=== PATIENT | male | born 1970 | race Caucasian/White ===

== ENCOUNTER 2022-09-09 13:45 | Outpatient (RCR) | payer MEDICAID, SELFPAY ==
--- NOTE | 2022-09-02 16:07 | PT.OPEX ---
[facility] [facility] Eval Start: 09/02/22 09:15 Freq: Status: Active Protocol: Document 09/02/22 09:16 TINO (Rec: 09/02/22 15:55 TINO [id number]) E-signed By Mary Dunlap PT STUDENT Physical Therapy Outpatient Evaluation Insurance Information Recert Due Date 10/31/22 Insurance Name [employer] Medical Diagnosis Left knee pain M25.562 Treating Diagnosis Stiffness of L knee M25.671 Muscle weakness M62.81 Referring Patricia Casas Subjective Kimo presents to PT with c/o L knee pain. Pt reports that attending PT was a requirement before insurance would pay for MRI. Pt reports experiencing something very similar with his R knee where his knee would give out especially while performing sit<>stand and severe pain. Pt expresses frustration that doctors were unable to find something wrong with his knee until months later when it was found to have a medial meniscus tear and is worried the same thing will happen with L knee. Pt reports that pain is at its worse when attempting to stand from the floor or when in weight bearing and knee flexion. Additional mvmts that cause pain are: sitting for long periods of time, quick stop or pivoting movements, or when something hits his knee unexpectedly. Pain and location of pain vary between days ranging from 5 to 10/10 and on posterior to anterior knee. Pt reports that he misses being able to walk for long periods of time as he used to walk for hours and now can only walk about 10 min before pain in knee begins. Pain has been severe enough to wake him up several times throughout the night. Pain can radiate down posterior leg into ankle and is relieved by self-massage. Pain Comments Pain is 5-10/10. Pt reports that it varies depending on the day. 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 Precautions Therapy Limitations/Systems Review Language Barrier Objective Other/Pertinent Objective ROM: L Knee flex: 128 Ext: 3 degrees of hyperextension. Hypomobility noted at L gastroc/soleus and L hip flexors with both positions of Marcio test. MMT: Hip Flexion: 4+/5 B Hip ext: 3/5 LLE Hip Abd/Add: 5/5 Knee ext: 4+/5 B Knee flexion: 5/5 B L plantarflexion: 4/5 (able to complete 7 reps standing single leg heel raise before losing height) Swelling: Mild diffuse swelling noted in ankle. pt denies swelling at knee Palpation: no pain noted with palpation of joint line or bony structures Balance and Gait: Pt demonstrated mild balance deficits. Was able to hold single leg stance for 15 s. Dynamic single leg balance presented more of a challenge. Trendelenburg gait noted with L hip drop. Pt ambulates with pronated and externally rotated feet. Minimal trunk rotation. Posture: Pronation of bilateral feet and lack of medial longitudinal arch. Mild valgus positioning of knees. Special test: all of the following test were administered, no abnormal or positive tests were found. Anterior & posterior drawer test, varus/valgus stress test , [place]ss[place], Ab, solis compression test. Assessment Assessment/Impression Kimo is a 52 yo M referred to PT by Dr. Cortez for L knee pain. Pt has a PMHx of R medial meniscus tear but denies any other pathology or PMHx of significance. Pt reports that x-ray was done on L knee and showed mild OA and narrowing of medial joint space. Pt c/o significant pain that can reach 10/10 but was unable to reproduce symptoms in today's session. Pt demonstrates significant tightness with the ankle lunge test, unable to keep heel on ground at any distance past toe touching wall. All special tests of knee were negative indicating decreased likelihood of meniscus or ligamentous tear. ROM of knee was within fnx limits. MMT L knee: extension 4+/5, hip extension: 3/5, hip flexion 4+ /5, plantarflexion 4-/5. Marcio test positive in both positions. Pt would benefit from skilled PT intervention to address deficits in mm length, gait training, and gross strengthening of LE. HEP of calf stretch, heel raise and modified Marcio stretch was given. Next session will focus on addressing more strength deficits in hips and gait training. Primary Functional Limitations Decreased strength LE gait abnormalities prolonged amb >10 w/o pain floor<>stand transfer. Plan of Care Rehabilitation Potential Good Rehabilitation Potential Comments Pt has experienced knee pain in the past with RLE and was able to have a successful rehabilitation. Pt demonstrated high motivation for recovery and had an active PLOF with walking several hours a day. Physical Therapy Goals In 6-8 weeks: Pt will be able to ambulate for 2 hrs without pain to return to prior level of function. Pt will be able to perform floor<>stand transfer independently and without pain to be able to return to previous work duties. Pt will be able to perform 20 single leg heel raises on L LE , demonstrating an improvement in strength. Pt will be able to independently verbalize and demonstrate HEP. Coordination/Communication With Referral Source Treatment Plan/Direct Interventions Gait Training,Ice/Cold/ Vasopneumatic,Joint Mobilization,Manual Therapy, Neuromuscular Re-ed, Therapeutic Activities, Therapeutic Exercises Frequency/Duration 1w6-8 Patient Will Be Discharged From Therapy Completion of LTG(s),Skills Plateau,Independently Progressing Discharge Plan Comments Discharge to independent HEP when goals met. Evaluation Billing Untimed Code Treatment Minutes 20 PT Eval No Charge No Complexity Moderate Certification Information Initial Certification Date 09/02/22 Ending Certification Date 10/31/22 Provider Signature Shows Agreement With POC & Medical Necessity Physician Signature & Date Requested Please Sign/Date Here Physician Comment/Change : Physician NPI Number #
== END 2023-01-07 23:59 | disposition home or self-care (01) ==
PROVIDERS: PCP Family Medicine; Visit Provider Family Medicine
DX: M25.562 Pain in left knee (principal); G89.29 Other chronic pain; M25.671 Stiffness of right ankle, not elsewhere classified; M62.81 Muscle weakness (generalized); Z51.89 Encounter for other specified aftercare
CPT/HCPCS: 97110; 97140; 97162